=== PATIENT | male | born 1950 | race African-American/Black ===

== ENCOUNTER 2016-07-09 18:56 | Emergency (ER) | payer OTHER ==
--- NOTE | 2016-07-09 21:25 | RAD ---
Indication: Increasing LEFT shoulder pain without known injury. Comparison: None. Technique: Internal and external rotation AP and scapular Y views LEFT shoulder Report: Normal acromioclavicular and glenohumeral joint alignment. 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 Resulting inferior acromial bone spur. Mild acromioclavicular and glenohumeral joint osteophytosis. Negative for fracture. Negative for stigmata of calcific tendinopathy. Unremarkable soft tissue contours. IMPRESSION: 1. 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 Resulting inferior acromial bone spur. 2. Mild acromioclavicular and glenohumeral joint osteoarthritis.
--- NOTE | 2016-07-09 21:56 | UC ---
David Wang Erika, scribed for Serena Kang MD on 07/09/16 at 2101 . Shoulder Pain HPI - HPI Summary HPI Summary: Patient is a 65-year-old male presenting to [facility] with a CC of dull left shoulder pain for the past few months, worsening and becoming sharp the past few days. Patient denies trauma or previous injury to the shoulder. Patient rates it an 8/10. Pain is aggravated by lifting items and palpation. Patient denies any chest pain, chest pressure, chest tightness, and SOB, even with exertion. FHx CAD in father. Patient has never smoked. Pt works out regularly and has been doing push-ups. Pt is employed at [employer]. - History of Current Complaint Chief Complaint: UCUpperExtremity Stated Complaint: SHOULDER PAIN Time Seen by Provider: 07/09/16 20:41 Hx Obtained From: Patient Onset/Duration: Gradual Onset, Lasting Weeks - months, Worse Since - a few days Timing: Constant Severity Initially: Mild Severity Currently: Moderate Location Of Pain: Is Discrete @ - L shoulder Pain Intensity: 8 Pain Scale Used: 0-10 Numeric Character: Sharp, Dull Aggravating Factor(s): Movement Alleviating Factor(s): Rest Associated Signs And Symptoms: Positive: Negative - Risk Factors Non-Orthopedic Risk Factor: Negative DVT Risk Factors: Negative Septic Arthritis Risk Factor: Negative - Allergies/Home Medications Allergies/Adverse Reactions: Allergies Allergy/AdvReac Type Severity Reaction Status Date / Time Antihistamines, Allergy Intermediate Hives Verified 11/04/15 22:14 Chlorpheniramine-ty PMH/Surg Hx/FS Hx/Imm Hx Respiratory History Of: Reports: Asthma - asthmatic bronchitis Other History Of: Negative For: HIV, Hepatitis B, Hepatitis C, Anticoagulant Therapy - Surgical History Surgical History: None Surgery Procedure, Year, and Place: none - Family History Known Family History: Positive: Cardiac Disease - father with CABG Negative: Diabetes - Social History Occupation: Employed Full-time Alcohol Use: Occasionally Substance Use Type: None Smoking Status (MU): Never Smoked Tobacco Have You Smoked in the Last Year: No - Immunization History Most Recent Influenza Vaccination: not in several years Most Recent Tetanus Shot: up to date Review of Systems Constitutional: Negative Skin: Negative Eyes: Negative ENT: Negative Respiratory: Negative Cardiovascular: Negative Gastrointestinal: Negative Genitourinary: Negative Motor: Negative Neurovascular: Negative Musculoskeletal: Arthralgia, Myalgia - L shoulder Neurological: Negative Psychological: Negative All Other Systems Reviewed And Are Negative: Yes Physical Exam Triage Information Reviewed: Yes Appearance: Well-Appearing, Well-Nourished, Pain Distress Vital Signs: Initial Vital Signs Temp 98.1 F 07/09/16 20:30 Pulse 61 07/09/16 20:30 Resp 18 07/09/16 20:30 BP 110/70 07/09/16 20:30 Pulse Ox 100 07/09/16 20:30 Vital Signs Reviewed: Yes Eyes: Positive: Conjunctiva Clear ENT: Positive: Normal ENT inspection Neck: Positive: Supple, Nontender Respiratory: Positive: Lungs clear, Normal breath sounds, No respiratory distress Cardiovascular: Positive: RRR, No Murmur, Pulses Normal, Brisk Capillary Refill Musculoskeletal: Positive: Strength Intact, ROM Intact, Other: - Point tenderness at the left anterior biceps tendon. No bony tenderness. Neurological: Positive: Alert, Muscle Tone Normal Psychological Exam: Normal Skin Exam: Normal Diagnostics - Laboratory Diagnostic Studies Completed/Ordered: EKG at 21:22 - sinus bradycardia at 56 bpm. Normal axis at 30. Normal AV IV conduction time. No acute changes. No prior to compare. - Radiology L shoulder XR Radiology Interpretation Completed By: Radiologist - IMPRESSION: 1. 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 Resulting inferior acromial bone spur. 2. Mild acromioclavicular and glenohumeral joint osteoarthritis. Re-Evaluation - Re-Evaluation First Eval Re-Evaluation Time: 21:44 Change: Unchanged Comment: Discussed XR results and plan of care Shoulder Course/Dx - Differential Dx/Diagnosis Differential Diagnosis/HQI/PQRI: AC Separation, Arthritis, Rotator Cuff Injury, Sprain, Strain, Tendonitis Provider Diagnoses: acute left shoulder pain with osteoarthritis Discharge - Discharge Plan Condition: Stable Disposition: HOME Prescriptions: Ibuprofen TAB* [Motrin TAB* 800 MG] 800 mg PO Q6H #56 tab Patient Education Materials: Shoulder Pain (ED) Referrals: Jong Dong MD [Medical Doctor] - 2 Weeks (Call tomorrow for an appointment) The documentation as recorded by the David rodriguez Erika accurately reflects the service I personally performed and the decisions made by Jorge Luis haas Barbara J, MD.
[2016-07-09 22:07] VITALS: BP 111/79
== END 2016-07-09 22:02 | disposition home or self-care (01) ==
LOC: UCEAST 18:56
DX: M25.512 Pain in left shoulder (principal); M19.012 Primary osteoarthritis, left shoulder; Z82.49 Family history of ischemic heart disease and other diseases of the circulatory system
CPT/HCPCS: 93005; 99212; G0463

== ENCOUNTER 2016-09-12 08:24 | Emergency (ER) | payer OTHER ==
[2016-09-12 10:36] VITALS: BP 119/78
--- NOTE | 2016-09-12 10:55 | UC ---
Joaquin Wang Claudia, scribed for Judy Wynn MD on 09/12/16 at 1016 . General HPI - HPI Summary HPI Summary: 65 year old male presents to the [facility] with general illness for the past year, pt states that yesterday he couldn't concentrate and he has been very fatigued. He notes that he is very tired and doesn't know what is causing it. Pt denies hx cardiac disease, DM, HTN. 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 Pt states he has had some dizziness when he stands which has been going on for the last year but has had some intermittent episodes of it lately. Pt denies any NVD, heamturia, and being bit by any insects. He denies that eating alleviates his Sx. Pt has an appt with his new PCP Lana Bolden next Sunday. Pt notes that his has Bronchitis. No rash, no change in urinary habit. No melena / brbpr. No gi issues. No h/a , vis / aud changes. No new cough / sob. No fever / chills. Appetite good, sensation of hunger / full does not seem to correlate with fatigue sensation. He is very active (works out a lot ), but less so the last few weeks, 2/2 fatigue. - History of Current Complaint Chief Complaint: UCGeneralIllness Stated Complaint: FATIGUE Time Seen by Provider: 09/12/16 10:08 Hx Obtained From: Patient Onset/Duration: Gradual Onset, Lasting Weeks, Still Present Associated Signs & Symptoms: Positive: Other - fatigue - Allergy/Home Medications Allergies/Adverse Reactions: Allergies Allergy/AdvReac Type Severity Reaction Status Date / Time Antihistamines, Allergy Intermediate Hives Verified 09/12/16 08:35 Chlorpheniramine-ty Home Medications: Home Medications NK [No Home Medications Reported] 09/12/16 [History Confirmed 09/12/16] PMH/Surg Hx/FS Hx/Imm Hx Previously Healthy: Yes Endocrine History Of: Denies: Diabetes, Thyroid Disease, Hyperthyroidism, Hypothyroidism, Dyslipidemia Cardiovascular History Of: Denies: Cardiac Disorders, Hypertension, Pacemaker/ICD, Myocardial Infarction , Congestive Heart Failure, Atrial Fibrillation, Deep Vein Thrombosis, Bleeding Disorders Respiratory History Of: Reports: Asthma - asthmatic bronchitis Denies: COPD, Bronchitis, Pneumonia, Pulmonary Embolism GI/ History Of: Denies: Gastroesophageal Reflux, Ulcer, Gastrointestinal Bleed, Gall Bladder Disease, Kidney Stones, Diverticulitis, Renal Disease, Urosepsis Neurological History Of: Denies: TIA, CVA, Dementia, Seizures, Migraine Psychological History Of: Denies: Anxiety, Depression, Bipolar Disorder, Schizophrenia, Post Traumatic Stress Disorder Cancer History Of: Denies: Lung Cancer, Colorectal Cancer, Breast Cancer, Prostate Cancer, Cervical Cancer Other History Of: Negative For: HIV, Hepatitis B, Hepatitis C, Anticoagulant Therapy - Surgical History Surgical History: None Surgery Procedure, Year, and Place: none - Family History Known Family History: Positive: Cardiac Disease - father with CABG Negative: Diabetes - Social History Occupation: Employed Full-time Lives: With Family Alcohol Use: Occasionally Substance Use Type: None Smoking Status (MU): Never Smoked Tobacco Have You Smoked in the Last Year: No - Immunization History Most Recent Influenza Vaccination: not in several years Most Recent Tetanus Shot: up to date Review of Systems Constitutional: Fatigue Skin: Negative Eyes: Negative ENT: Negative Respiratory: Negative - NO SOB Cardiovascular: Negative Gastrointestinal: Negative - NO NVD Genitourinary: Negative - NO HEMATURIA Motor: Negative Neurovascular: Negative Musculoskeletal: Negative Neurological: Negative Psychological: Negative All Other Systems Reviewed And Are Negative: Yes Physical Exam Triage Information Reviewed: Yes Vital Signs: Initial Vital Signs Temp 97.1 F 09/12/16 08:31 Pulse 63 09/12/16 08:31 Resp 16 09/12/16 08:31 BP 110/70 09/12/16 08:31 Pulse Ox 98 09/12/16 08:31 - Additional Comments * Appearance: Well-Nourished * Eye Exam: Normal * ENT Exam: Normal * Respiratory Exam: Normal, no dyspnea, no tachypnea, normal respiratory rate, EXPIRATORY WHEEZES WITH FORCED EXPIRATION(discussed with pt) * Chest non-tender, Lungs clear, Normal breath sounds, No respiratory distress, No accessory muscle use * Cardiovascular Exam: Normal * Cardiovascular: Heart rate regular, good general skin color, good capillary refill * RRR, No Murmur, Pulses Normal - sitting up Brisk Capillary Refill * Abdominal Exam: Normal * Abdomen Description: Nontender, No Organomegaly, Soft * Bowel Sounds: Present * Musculoskeletal Exam: Normal * Musculoskeletal: Strength Intact * Neurological Exam: Normal: nonfocal, grossly intact CN 1 - 12 intact, incl + sens alcohol swab. No diplopia. DTR's 2+ equal P / BR / R Moves all ext's. Distal sens LT present x 4 ext's Denies B/B issues. Gait steady. * Psychological Exam: Normal: conversing easily and appropriately * Skin Exam: Normal: no visible or reported rash Diagnostics - EKG Cardiac Rate: NL - SR 52 beats/min WI 169 OTC 399 Cardiac Rhythm: Sinus: Normal Course/Dx - Course Course Of Treatment: No new problems while in [facility]. EKG reviewed - S.B. at 52 bpm. Old ekg with HR 56bpm. Able to ambulate without difficulty. Conversing easily and appropriately. Fatigue dx in an of itself is challenging, he is aware of the importance of close f/u with pcp as planned next week. Seek medical attention for worse or new problems in the meantime. Blood work ordered cbc, cmp, magn, crp, esr, lyme titer, tsh, Vit D 25OH. Questions answered to the best of my ability. - Differential Dx - Multi-Symptom Provider Diagnoses: Fatigue Discharge - Discharge Plan Condition: Stable Disposition: HOME Patient Education Materials: Fatigue (ED), Weakness (ED) Referrals: Lana Bolden MD [Medical Doctor] - Additional Instructions: Please follow up with your primary care provider as scheduled next week. Seek medical attention for worse or new problems in the meantime. Avoid driving or operating heavy machinery if you are too fatigued. Blood work ordered. cbc cmp esr crp lyme titer thyroid (tsh) The documentation as recorded by the Joaquin rodriguez Claudia accurately reflects the service I personally performed and the decisions made by me, Judy Wynn MD.
[2016-09-12 16:13] LABS: Hematocrit 42 % (42-52); Hemoglobin 14.2 g/dl (14.0-18.0); Mean Corpuscular HGB Conc 34 g/dl (31-36); Mean Corpuscular Hemoglobin 30 pg (27-31); Mean Corpuscular Volume 89 fL (80-94); Mean Platelet Volume 9 um3 (7.4-10.4); Red Blood Count 4.71 10^6/ul (4.0-5.4); Red Cell Distribution Width 13 % (10.5-15); White Blood Count 5.1 10^3/ul (3.5-10.8)
[2016-09-12 16:28] LABS: Albumin 4.1 g/dL (3.2-5.2); C Reactive Protein 3.63 mg/L (< 5.00); Calcium 9.2 mg/dL (8.6-10.3); EGFR Non-African American 66.9 (>60); Globulin 2.4 g/dL (2-4); Magnesium 1.9 mg/dL (1.9-2.7); TSH (Thyroid Stimulating Horm) 2.69 mcIU/mL (0.34-5.60); Total Bilirubin 0.5 mg/dL (0.2-1.0); Total Protein 6.5 g/dL (6.4-8.9)
[2016-09-12 17:08] LABS: Erythrocyte Sed Rate 10 mm/Hr (0-20)
== END 2016-09-12 11:13 | disposition home or self-care (01) ==
LOC: UCEAST 08:24
DX: R53.83 Other fatigue (principal)
CPT/HCPCS: 36415; 80053; 82306; 83735; 84443; 85025; 85652; 86140; 86618; 93005; 99212; G0463

== ENCOUNTER 2016-12-31 21:33 | Emergency (ER) | payer OTHER ==
[2016-12-31 21:39] VITALS: BP 116/74
[2016-12-31] MEDS ORDERED: Lidocaine 2% W/EPI 1:100,000* 20 ML MDV INJ ONE (22:03)
--- NOTE | 2016-12-31 22:27 | UC ---
Skin Complaint HPI - HPI Summary HPI Summary: 66 y/o male presents to the urgent care c/o a painful lump in his upper back he noticed about 4 hrs ago. Pt states is warm to touch, Pain is 7/10. He has not taking anything to alleviate symptoms. He denies Hx of MRSA or skin infections. Pt denies fever, SOB, chest pain, N/V/D - History of Current Complaint Chief Complaint: UCSkin Time Seen by Provider: 12/31/16 21:57 Stated Complaint: LUMP ON BACK Hx Obtained From: Patient Onset/Duration: Sudden Onset, Lasting Hours - 4 hrs ago Skin Exposure Onset/Duration: Hours Ago Timing: Constant Onset Severity: Moderate Current Severity: Moderate Pain Intensity: 7 Pain Scale Used: 0-10 Numeric Location: Discrete - RT upper back Character: Swelling, Pain, Redness, Raised Aggravating: Touch Alleviating: Nothing Associated Signs & Symptoms: Positive: Tenderness. Negative: Nausea, Vomiting, Numbness, Fever, Chills, Drainage, Red Streaks - Allergy/Home Medications Allergies/Adverse Reactions: Allergies Allergy/AdvReac Type Severity Reaction Status Date / Time Antihistamines, Allergy Intermediate Hives Verified 11/22/16 14:41 Chlorpheniramine-ty Home Medications: Home Medications Naproxen Sodium [Naproxen Sodium 220 mg] 220 mg PO 12/31/16 [History] Review of Systems Constitutional: Negative Skin: Rash - RT upper back with painful lump Eyes: Negative ENT: Negative Respiratory: Negative Cardiovascular: Negative Gastrointestinal: Negative Genitourinary: Negative Motor: Negative Neurovascular: Negative Musculoskeletal: Negative Neurological: Negative Psychological: Negative Is Patient Immunocompromised?: No All Other Systems Reviewed And Are Negative: Yes PMH/Surg Hx/FS Hx/Imm Hx Previously Healthy: Yes - Pt denies any PMHX Other History Of: Negative For: HIV, Hepatitis B, Hepatitis C, Anticoagulant Therapy - Surgical History Surgical History: None Surgery Procedure, Year, and Place: none - Family History Known Family History: Positive: Cardiac Disease - father with CABG, Hypertension , Diabetes - Social History Occupation: Employed Full-time Lives: With Family Alcohol Use: Occasionally Substance Use Type: None Smoking Status (MU): Never Smoked Tobacco Have You Smoked in the Last Year: No - Immunization History Most Recent Influenza Vaccination: not in several years Most Recent Tetanus Shot: up to date Physical Exam Triage Information Reviewed: Yes Appearance: Well-Appearing, No Pain Distress, Well-Nourished Vital Signs: Initial Vital Signs Temp 98.2 F 12/31/16 21:35 Pulse 79 12/31/16 21:35 Resp 18 12/31/16 21:35 BP 116/74 12/31/16 21:35 Pulse Ox 100 12/31/16 21:35 Vital Signs Reviewed: Yes Eye Exam: Normal Eyes: Positive: Conjunctiva Clear - PERRLA, EOMI ENT Exam: Normal ENT: Positive: Normal ENT inspection, Hearing grossly normal, Pharynx normal, TMs normal Neck exam: Normal Neck: Positive: Supple, Nontender, No Lymphadenopathy Respiratory Exam: Normal Respiratory: Positive: Chest non-tender, Lungs clear, Normal breath sounds, No respiratory distress Cardiovascular Exam: Normal Cardiovascular: Positive: RRR, No Murmur, Pulses Normal Abdominal Exam: Normal Abdomen Description: Positive: Nontender, No Organomegaly, Soft. Negative: CVA Tenderness (R), CVA Tenderness (L) Bowel Sounds: Positive: Present Musculoskeletal Exam: Normal Musculoskeletal: Positive: Strength Intact, ROM Intact, No Edema Neurological Exam: Normal Psychological Exam: Normal Skin Exam: Normal Skin: Positive: Other - RT upper back with an indurated, raised erythematous cyst, warm and tender to palpation, about 2cmx 2cm in size, Blackhead pimple in the center. Course/Dx - Course Course Of Treatment: 66 y/o male presents to the urgent care c/o a painful lump in his upper back he noticed about 4 hrs ago. Pt states is warm to touch, Pain is 7/10. He has not taking anything to alleviate symptoms. He denies Hx of MRSA or skin infections. Pt denies fever, SOB, chest pain, N/V/D. HX Obtained. Dx Abscess of the RT upper back. I&D of abscess procedure:The procedure was explained and consent obtained. [place] protocol performed. The wound was anesthetized with 4mL of Lido/epi 2% with good anesthesia. Sterile drape and prep were done. The fluctuant center was incised with #11 blade scalpel. A moderate amount of caseous material was expressed . wound cultures obtained and sent to lab lab to r/o MRSA. The wound was probed for loculated areas and irrigated with normal saline. The wound was packed loosely with wick or left open. Bacitracin topical ointment applied and wound covered with sterile dressing. The patient tolerated the procedure well. Pt Rx Keflex PO, first dose given at the clinic. and Advise dto take the Naproxen PO he has at home for pain. Advised to return to the urgent care for wound check up in 2 days. Pt advised fever develops and pain increase despite ABX to go immediately to the ER for further management. Pt understood and agreed with D/C instructions. Left the clinic ambulating A&OX3. Time out performed and all involved parties agreed to the PT, procedure and laterality. The patient was prepped and draped in usual sterile fashion. Local anesthesia was obtained with 1 % Lidocaine w/o epinephrine. - Differential Diagnoses - Skin Complaint Differential Diagnoses: Abscess, Cellulitis, Contact Dermatitis, Impetigo, Lymphadenitis, Tinea, Urticaria, Other - lipoma - Diagnoses Provider Diagnoses: 1- RT upper back with abscess Discharge - Discharge Plan Condition: Stable Disposition: HOME Prescriptions: Bacitracin OINTMENT* 1 applic TOPICAL TID #1 tube Cephalexin CAP* [Keflex CAP*] 500 mg PO QID #27 cap Patient Education Materials: Abscess (ED) Referrals: Lana Bolden MD [Primary Care Provider] - 2 Days Additional Instructions: 1-Please take full course of antibiotic to avoid resistance. Keep wound clean and dry with a sterile dressing. Apply bacitracin topical as directed 2- F/u wound check up in 2 days with your PCP or at the urgent care for removal of packing 3-. Take Naproxen PO q6-8hrs prn you have at home for pain or swelling after meals. 4-If you develop fever or redness despite antibiotic please go to the ER immediately or return to the Urgent care. 5- Wound culture sent to lab, if any abnormal result you will receive a call from us
[2016-12-31] MEDS ORDERED: Cephalexin CAP* 500 MG PO ONE (22:35)
--- NOTE | 2017-01-03 17:21 | ED ---
Progress - Progress Note Progress Note: CALL PATIENT. CX GREW FINEGOLDIA (ANAEROBIC). CONTINUE ABX. IF WORSE GOT TO ER./ PCP. Course/Dx - Course Course Of Treatment: 66 y/o male presents to the urgent care c/o a painful lump in his upper back he noticed about 4 hrs ago. Pt states is warm to touch, Pain is 7/10. He has not taking anything to alleviate symptoms. He denies Hx of MRSA or skin infections. Pt denies fever, SOB, chest pain, N/V/D. HX Obtained. Dx Abscess of the RT upper back. I&D of abscess procedure:The procedure was explained and consent obtained. [place] protocol performed. The wound was anesthetized with 4mL of Lido/epi 2% with good anesthesia. Sterile drape and prep were done. The fluctuant center was incised with #11 blade scalpel. A moderate amount of caseous material was expressed . wound cultures obtained and sent to lab lab to r/o MRSA. The wound was probed for loculated areas and irrigated with normal saline. The wound was packed loosely with wick or left open. Bacitracin topical ointment applied and wound covered with sterile dressing. The patient tolerated the procedure well. Pt Rx Keflex PO, first dose given at the clinic. and Advise dto take the Naproxen PO he has at home for pain. Advised to return to the urgent care for wound check up in 2 days. Pt advised fever develops and pain increase despite ABX to go immediately to the ER for further management. Pt understood and agreed with D/C instructions. Left the clinic ambulating A&OX3. Time out performed and all involved parties agreed to the PT, procedure and laterality. The patient was prepped and draped in usual sterile fashion. Local anesthesia was obtained with 1 % Lidocaine w/o epinephrine. - Diagnoses Provider Diagnoses: Wound abscess
== END 2016-12-31 22:50 | disposition home or self-care (01) ==
LOC: UCEAST 21:33
DX: L02.212 Cutaneous abscess of back [any part, except buttock and flank] (principal)
CPT/HCPCS: 10060; 87070; 87076; 87205; 87640; 87641; 99212; A9270-GY; G0463

== ENCOUNTER 2017-01-02 10:55 | Emergency (ER) | payer OTHER ==
[2017-01-02 11:10] VITALS: BP 104/66
--- NOTE | 2017-01-02 12:02 | UC ---
Skin Complaint HPI - History of Current Complaint Chief Complaint: UCSkin Time Seen by Provider: 01/02/17 12:01 Stated Complaint: SKIN FOLLOW-UP Hx Obtained From: Patient - Allergy/Home Medications Allergies/Adverse Reactions: Allergies Allergy/AdvReac Type Severity Reaction Status Date / Time Antihistamines, Allergy Intermediate Hives Verified 01/02/17 11:10 Chlorpheniramine-ty PMH/Surg Hx/FS Hx/Imm Hx Other History Of: Negative For: HIV, Hepatitis B, Hepatitis C, Anticoagulant Therapy - Surgical History Surgical History: None Surgery Procedure, Year, and Place: none - Family History Known Family History: Positive: Cardiac Disease - father with CABG, Hypertension , Diabetes - Social History Alcohol Use: Occasionally Substance Use Type: None Smoking Status (MU): Never Smoked Tobacco Have You Smoked in the Last Year: No - Immunization History Most Recent Influenza Vaccination: not in several years Most Recent Tetanus Shot: up to date Physical Exam Vital Signs: Initial Vital Signs Temp 97.5 F 01/02/17 11:06 Pulse 57 01/02/17 11:06 Resp 18 01/02/17 11:06 BP 104/66 01/02/17 11:06 Pulse Ox 100 01/02/17 11:06
--- NOTE | 2017-01-02 12:10 | UC ---
Progress - Progress Note Progress Note: 12:00 I stepped in to see Mr. Wilson, he politely requested to see Ms. Mario Harmon, who he saw on 12/31/16. I offered that I would be happy to help if requested.
--- NOTE | 2017-01-02 12:21 | UC ---
Skin Complaint HPI - HPI Summary HPI Summary: 66 y/o male presents to the urgent care for f/u wound check up on his I&D done on his RT upper back on 12/31/2016. Pt states he is taking his antibiotic as directed. Pt reports only itchiness over the wound. Pt denies pain, fever, SOB, chest pain, N/V/D - History of Current Complaint Chief Complaint: UCSkin Time Seen by Provider: 01/02/17 12:01 Stated Complaint: SKIN FOLLOW-UP Hx Obtained From: Patient Onset/Duration: Gradual Onset, Lasting Days, Resolved - resolvong after I&D Onset Severity: Severe Current Severity: Mild Pain Intensity: 0 Pain Scale Used: 0-10 Numeric Location: Discrete - back abscess Character: Pruritus Aggravating: Touch Alleviating: Other - antibiotics Associated Signs & Symptoms: Positive: Negative - Allergy/Home Medications Allergies/Adverse Reactions: Allergies Allergy/AdvReac Type Severity Reaction Status Date / Time Antihistamines, Allergy Intermediate Hives Verified 01/02/17 11:10 Chlorpheniramine-ty Review of Systems Constitutional: Negative Skin: Other - RT upper back abscess healing well Eyes: Negative ENT: Negative Respiratory: Negative Cardiovascular: Negative Gastrointestinal: Negative Genitourinary: Negative Motor: Negative Neurovascular: Negative Musculoskeletal: Negative Neurological: Negative Psychological: Negative Is Patient Immunocompromised?: No All Other Systems Reviewed And Are Negative: Yes PMH/Surg Hx/FS Hx/Imm Hx Previously Healthy: Yes Other History Of: Negative For: HIV, Hepatitis B, Hepatitis C, Anticoagulant Therapy - Surgical History Surgical History: None Surgery Procedure, Year, and Place: none - Family History Known Family History: Positive: Cardiac Disease - father with CABG, Hypertension , Diabetes - Social History Occupation: Employed Full-time Lives: With Family Alcohol Use: Occasionally Substance Use Type: None Smoking Status (MU): Never Smoked Tobacco Have You Smoked in the Last Year: No - Immunization History Most Recent Influenza Vaccination: not in several years Most Recent Tetanus Shot: up to date Physical Exam Triage Information Reviewed: Yes Appearance: Well-Appearing, No Pain Distress, Well-Nourished Vital Signs: Initial Vital Signs Temp 97.5 F 01/02/17 11:06 Pulse 57 01/02/17 11:06 Resp 18 01/02/17 11:06 BP 104/66 01/02/17 11:06 Pulse Ox 100 01/02/17 11:06 Vital Signs Reviewed: Yes Eye Exam: Normal Eyes: Positive: Conjunctiva Clear - PERRLA, EOMI ENT Exam: Normal ENT: Positive: Normal ENT inspection, Hearing grossly normal, Pharynx normal, TMs normal Neck exam: Normal Neck: Positive: Supple, Nontender, No Lymphadenopathy Respiratory Exam: Normal Respiratory: Positive: Chest non-tender, Lungs clear, Normal breath sounds Cardiovascular Exam: Normal Cardiovascular: Positive: RRR, No Murmur, Pulses Normal Abdominal Exam: Normal Abdomen Description: Positive: Nontender, No Organomegaly, Soft. Negative: CVA Tenderness (R), CVA Tenderness (L) Bowel Sounds: Positive: Present Musculoskeletal Exam: Normal Neurological Exam: Normal Psychological Exam: Normal Skin: Positive: Other - RT upper back with abscess s/p I&D with packing in placed. mild sourrounding erythema, non tender on palpation, discrete serosanguinous discharge. Course/Dx - Course Course Of Treatment: 66 y/o male presents to the urgent care for f/u wound check up on his I&D done on his RT upper back on 12/31/2016. Pt states he is taking his antibiotic as directed. Pt reports only itchiness over the wound. Pt denies pain, fever, SOB, chest pain, N/V/D. hx obtained. PE abnormality: RT upper back with abscess s/p I&D with packing in placed. mild sourrounding erythema, non tender on palpation, discrete serosanguinous discharge. Packing removed and mild serosanguinous drainage removed. wound healing well. Bacitracin topical ABX applied and sterile dressing applied. Wound culture positive for S. Aureus. Pt Advised to continue taking the Keflex PO and keep wound dry and clean as directed.If he develops fever or redness despite antibiotic please go to the ER immediately or return to the Urgent care. Pt understood and agreed with D/C instructions and left the clinic ambulating , A& OX3 - Differential Diagnoses - Skin Complaint Differential Diagnoses: Abscess, Cellulitis, Contact Dermatitis, Lymphadenitis, Urticaria - Diagnoses Provider Diagnoses: 1- Right upper back abscess wound check-up Discharge - Discharge Plan Condition: Stable Disposition: HOME Patient Education Materials: Acute Wound Care (ED) Referrals: Lana Bolden MD [Primary Care Provider] - If Needed Additional Instructions: 1- Please continue taking Keflex PO and applying Bacitracin ointment as directed. 2-If you develop fever or redness despite antibiotic please go to the ER immediately or return to the Urgent care. 3- Wound culture was postive for S. Aureus bacteria.
== END 2017-01-02 12:50 | disposition home or self-care (01) ==
LOC: UCEAST 10:55
DX: Z48.817 Encounter for surgical aftercare following surgery on the skin and subcutaneous tissue (principal); L02.212 Cutaneous abscess of back [any part, except buttock and flank]
CPT/HCPCS: 99211; G0463

== ENCOUNTER 2017-05-15 13:32 | Emergency (ER) | payer OTHER ==
[2017-05-15 13:47] VITALS: BP 109/69
[2017-05-15] MEDS ORDERED: Albuterol/Ipratropium NEB.SOL* Albuterol 2.5 MG/Ipratropium 0.5 MG 3 ML INH ONE (14:05)
--- NOTE | 2017-05-15 14:30 | UC ---
Respiratory Complaint HPI - HPI Summary HPI Summary: Pleasant 66 yo gentleman c/o approx 5 days progressive worse cough, congestion. Started as sinus congestion and sore throat. Improved, but once again worsened. No fever / chills. ++ cough, worse at night, needs to sit up to sleep. No rash. No sob perse except with cough. No GI issues. Does have a hx bronchitis, not recent. - History of Current Complaint Chief Complaint: UCRespiratory Stated Complaint: CONGESTION Time Seen by Provider: 05/15/17 13:51 Hx Obtained From: Patient, Family/[employer] - Allergies/Home Medications Allergies/Adverse Reactions: Allergies Allergy/AdvReac Type Severity Reaction Status Date / Time Antihistamines, Allergy Intermediate Hives Verified 05/15/17 13:47 Chlorpheniramine-ty PMH/Surg Hx/FS Hx/Imm Hx Previously Healthy: Yes Other History Of: Negative For: HIV, Hepatitis B, Hepatitis C, Anticoagulant Therapy - Surgical History Surgical History: None Surgery Procedure, Year, and Place: none - Family History Known Family History: Positive: Cardiac Disease - father with CABG, Hypertension , Diabetes - Social History Alcohol Use: Occasionally Substance Use Type: None Smoking Status (MU): Never Smoked Tobacco Have You Smoked in the Last Year: No - Immunization History Most Recent Influenza Vaccination: not in several years Most Recent Tetanus Shot: up to date Review of Systems Constitutional: Fatigue Skin: Negative Eyes: Negative ENT: Sore Throat, Ear Ache, Nasal Discharge, Sinus Congestion Respiratory: Cough Cardiovascular: Negative Gastrointestinal: Negative Genitourinary: Negative Motor: Negative Neurovascular: Negative Musculoskeletal: Negative Neurological: Negative Psychological: Negative Is Patient Immunocompromised?: No All Other Systems Reviewed And Are Negative: Yes Physical Exam Triage Information Reviewed: Yes Appearance: Well-Appearing, Well-Nourished - sitting up, conversing easily and appropriately. Able to converse in full sentances. Non-diaphoretic. Vital Signs: Initial Vital Signs Temp 97.9 F 05/15/17 13:43 Pulse 65 05/15/17 13:43 Resp 18 05/15/17 13:43 BP 109/69 05/15/17 13:43 Pulse Ox 98 05/15/17 13:43 Vital Signs Reviewed: Yes Eye Exam: Normal ENT: Positive: Pharyngeal erythema - uvula midline. Uvula edematous, but not obstructing. Post pharynx general erythematous. No appreciable sores., Nasal congestion Neck exam: Normal Neck: Positive: Supple, Nontender, No Lymphadenopathy Respiratory: Positive: No respiratory distress, No accessory muscle use, Other: - BS equal. + Bilat insp and exp wheezes (both upper and lower chest). No rtx. No stridor. Cardiovascular Exam: Normal Cardiovascular: Positive: RRR, No Murmur, Pulses Normal, Brisk Capillary Refill Abdominal Exam: Normal Abdomen Description: Positive: Nontender Musculoskeletal Exam: Normal Musculoskeletal: Positive: Strength Intact Neurological Exam: Normal - grossly intact, nonfocal. Psychological Exam: Normal - conversing easily and appropriately. Skin Exam: Normal UC Diagnostic Evaluation - Laboratory O2 Sat by Pulse Oximetry: 98 Respiratory Course/Dx - Course Course Of Treatment: CXR reviewed. nad. Influenza A/B swab neg. Reviewed recommendation for f/u with pcp for recheck. Questions as posed answered to the best of my ability. Reviewed coa and tx plan, also included usual narc discussion. rx as below - Differential Dx/Diagnosis Provider Diagnoses: acute bronchitis. bronchospasm Discharge - Discharge Plan Condition: Stable Disposition: HOME Prescriptions: Albuterol HFA INHALER* [Ventolin HFA Inhaler*] 1 - 2 puff INH Q6H PRN #1 mdi PRN Reason: Wheezing DOXYcycline CAP(*) [DOXYcycline 100MG CAP(*)] 100 mg PO BID #20 cap Guaifenesin-Codeine [Codeine/Guaifenesin 100-10 mg/5Ml] 5 ml PO Q6H #200 ml MDD 40ml Patient Education Materials: Acute Bronchitis (ED), Bronchospasm (ED) Referrals: Lana Bolden MD [Primary Care Provider] - Additional Instructions: Please follow up with your primary care physician - recommend in the next 1-2 weeks for recheck. Please seek medical attention for worse or new problems in the meantime. Consider probiotic dietary supplement while taking antibiotic. Drink plenty of fluids.
--- NOTE | 2017-05-15 14:34 | RAD ---
HISTORY: Cough, shortness of breath COMPARISONS: November 10, 2015 VIEWS: 4: Frontal dual-energy and lateral views of the chest. FINDINGS: CARDIOMEDIASTINAL SILHOUETTE: The cardiomediastinal silhouette is normal. RENETTA: The renetta are normal. PLEURA: The costophrenic angles are sharp. No pleural abnormalities are noted. LUNG PARENCHYMA: The lungs are clear. ABDOMEN: The upper abdomen is clear. There is no subphrenic gas. BONES AND SOFT TISSUES: No bone or soft tissue abnormalities are noted. OTHER: None. IMPRESSION: NO ACTIVE CARDIOPULMONARY DISEASE.
== END 2017-05-15 15:06 | disposition home or self-care (01) ==
LOC: UCEAST 13:32
DX: J20.9 Acute bronchitis, unspecified (principal)
CPT/HCPCS: 71046; 87502; 99212; A9270-GY; G0463

== ENCOUNTER 2017-08-07 15:13 | Emergency (ER) | payer OTHER ==
[2017-08-07 15:46] VITALS: BP 114/75
--- NOTE | 2017-08-07 17:05 | UC ---
FLU HPI - HPI Summary HPI Summary: 66 y/o male with c/o chest congestions, sinus congestion, non-prod cough, runny nose, tightness in chest with deep breaths, mild body aches. Denies fever, chills, SOB, ear pain. mild [place]. no NVCD. no pmh, no meds no recent abx - History of Current Complaint Hx Obtained From: Patient Onset/Duration: Sudden Onset, Lasting Days Severity Currently: Mild Severity Initially: Moderate Pain Intensity: 3 Pain Scale Used: 0-10 Numeric <Judy Molina - Last Filed: 08/07/17 17:01> <Devika Rizo - Last Filed: 08/07/17 18:59> - History of Current Complaint Chief Complaint: UCRespiratory Stated Complaint: COUGH,CONGESTION,COUGH Time Seen by Provider: 08/07/17 16:42 - Allergy/Home Medications Allergies/Adverse Reactions: Allergies Allergy/AdvReac Type Severity Reaction Status Date / Time Antihistamines - Alkylamine Allergy Hives Verified 08/07/17 15:47 PMH/Surg Hx/FS Hx/Imm Hx Previously Healthy: Yes Other History Of: Negative For: HIV, Hepatitis B, Hepatitis C, Anticoagulant Therapy - Surgical History Surgical History: None Surgery Procedure, Year, and Place: none - Family History Known Family History: Positive: Cardiac Disease - father with CABG, Hypertension , Diabetes - Social History Alcohol Use: Occasionally Substance Use Type: None Smoking Status (MU): Never Smoked Tobacco Have You Smoked in the Last Year: No - Immunization History Most Recent Influenza Vaccination: not in several years Most Recent Tetanus Shot: up to date <Judy Molina - Last Filed: 08/07/17 17:01> Review of Systems Constitutional: Fatigue ENT: Ear Ache, Nasal Discharge, Sinus Congestion, Sinus Pain/Tenderness Respiratory: Cough Neurological: Headache - mild Is Patient Immunocompromised?: No All Other Systems Reviewed And Are Negative: Yes <Judy Molina - Last Filed: 08/07/17 17:01> Physical Exam Triage Information Reviewed: Yes Appearance: No Pain Distress, Well-Nourished, Ill-Appearing - mild Vital Signs: Initial Vital Signs Temp 98.2 F 08/07/17 15:42 Pulse 84 08/07/17 15:42 Resp 18 08/07/17 15:42 BP 114/75 08/07/17 15:42 Pulse Ox 100 08/07/17 15:42 Eyes: Positive: Conjunctiva Clear ENT: Positive: Pharynx normal, TMs normal - mild fluid behind TM b/l, Sinus tenderness, Uvula midline. Negative: Pharyngeal erythema, Nasal drainage, Tonsillar swelling, Tonsillar exudate Neck: Positive: Supple, Nontender, Enlarged Nodes @ - minimal submand Respiratory: Positive: Chest non-tender, Lungs clear, Normal breath sounds, No respiratory distress, No accessory muscle use, Wheezing - b/l LLs. Negative: Respiratory distress, Decreased breath sounds Cardiovascular: Positive: RRR, No Murmur Abdomen Description: Negative: CVA Tenderness (R), CVA Tenderness (L) <Judy Molina - Last Filed: 08/07/17 17:01> Vital Signs: Initial Vital Signs Temp 98.2 F 08/07/17 15:42 Pulse 84 08/07/17 15:42 Resp 18 08/07/17 15:42 BP 114/75 08/07/17 15:42 Pulse Ox 100 08/07/17 15:42 <Devika Rizo - Last Filed: 08/07/17 18:59> Flu Course/Dx - Course Course Of Treatment: sinusitis with ? CAP, abx, follow up with pcp, conservative treatment - Differential Dx/Diagnosis Provider Diagnoses: Sinusitis <Judy Molina - Last Filed: 08/07/17 17:01> Discharge - Sign-Out/Discharge Documenting (check all that apply): Discharge - Billing Disposition and Condition Condition: GOOD Disposition: HOME <Judy Molina - Last Filed: 08/07/17 17:01> - Billing Disposition and Condition Condition: GOOD Disposition: HOME <Devika Rizo - Last Filed: 08/07/17 18:59> - Discharge Plan Condition: Good Disposition: HOME Prescriptions: Azithromycin TAB* [Zithromax TAB (Z-ROMY) 250 mg #6 tabs] 2 tab PO .TODAY, THEN 1 DAILY #1 romy Patient Education Materials: Sinusitis (ED) Forms: *Work Release Referrals: Lana Bolden MD [Primary Care Provider] - Additional Instructions: - Antibiotics as prescribed - ALbuterol inhaler as needd - increase fluid intake - Follow up with primary if no improvement within 2-3 days - return to ER with shorness of breath, chest pain Attestation Statement User Type: Provider - I was available for consult. This patient was seen by the LAUREN. The patient was not presented to, seen by, or examined by me. -Tanisha <Devika Rizo - Last Filed: 08/07/17 18:59>
== END 2017-08-07 17:13 | disposition home or self-care (01) ==
LOC: UCEAST 15:13
DX: J32.9 Chronic sinusitis, unspecified (principal); R05 Cough; R53.83 Other fatigue; Z88.8 Allergy status to other drugs, medicaments and biological substances
CPT/HCPCS: 99212; G0463

== ENCOUNTER 2018-02-05 18:19 | Emergency (ER) | payer OTHER ==
[2018-02-05 19:14] VITALS: BP 111/71
--- NOTE | 2018-02-05 19:52 | UC ---
UC General HPI - HPI Summary HPI Summary: Pleasant 67 yo gentleman c/o sinus congestion "sinus infection" last week, it is better now, but concerned b/c thinks it is going into his chest. + cough some productive, tight, progressively worse. Hx of similar in the past, that has gotten significantly worse. No rash. Not sob. Has used inhalers in the past with previous bronchitis, but reports palpitations and insomnia while using. Wonders if / why wheezing chest tightness worse. No recent fever. No rash. No GI issues. - History of Current Complaint Chief Complaint: UCRespiratory Stated Complaint: SINUS CONGESTION Time Seen by Provider: 02/05/18 19:30 Hx Obtained From: Patient Pain Intensity: 0 - Allergy/Home Medications Allergies/Adverse Reactions: Allergies Allergy/AdvReac Type Severity Reaction Status Date / Time Antihistamines - Alkylamine Allergy Hives Verified 02/05/18 19:15 PMH/Surg Hx/FS Hx/Imm Hx Previously Healthy: Yes Other History Of: Negative For: HIV, Hepatitis B, Hepatitis C, Anticoagulant Therapy - Surgical History Surgical History: None Surgery Procedure, Year, and Place: none - Family History Known Family History: Positive: Cardiac Disease - father with CABG, Hypertension , Diabetes - Social History Alcohol Use: Occasionally Substance Use Type: None Smoking Status (MU): Never Smoked Tobacco Have You Smoked in the Last Year: No - Immunization History Most Recent Influenza Vaccination: not in several years Most Recent Tetanus Shot: up to date Review of Systems Constitutional: Fatigue Skin: Negative Eyes: Negative ENT: Sinus Congestion - see hpi Respiratory: Shortness Of Breath, Cough Cardiovascular: Negative Gastrointestinal: Negative Genitourinary: Negative Motor: Negative Neurovascular: Negative Musculoskeletal: Negative Neurological: Negative Psychological: Negative Is Patient Immunocompromised?: No All Other Systems Reviewed And Are Negative: Yes Physical Exam Triage Information Reviewed: Yes Appearance: Well-Nourished Vital Signs: Initial Vital Signs Temp 97.5 F 02/05/18 19:12 Pulse 58 02/05/18 19:12 Resp 16 02/05/18 19:12 BP 111/71 02/05/18 19:12 Pulse Ox 100 02/05/18 19:12 Vital Signs Reviewed: Yes Eye Exam: Normal ENT: Positive: Pharyngeal erythema - mild post pharyng redness c/w cough, post nasal drip, Other - TM left good light reflex. TM R harrison, dull. Neck exam: Normal Neck: Positive: Supple, Nontender, No Lymphadenopathy Respiratory Exam: Other - occas ilya wheeze. Faint crackle left base. No rtx. Respiratory: Positive: No respiratory distress, No accessory muscle use Cardiovascular Exam: Normal Cardiovascular: Positive: RRR, No Murmur, Pulses Normal, Brisk Capillary Refill Abdominal Exam: Normal Abdomen Description: Positive: Nontender Musculoskeletal Exam: Normal - gait steady, moves x 4 ext's Neurological Exam: Normal - grossly nonfocal Psychological Exam: Normal - conversing easily and appropriately. NAD. Skin Exam: Normal - no visible or reported rash. Course/Dx - Course Course Of Treatment: Reviewed coa / tx plan. Questions as posed answered to the best of my ability. Encourage f/u pcp. Recommend xopenex d/t reasons as noted in hpi. If not covered by insurance, he reports that he will use albuterol, but would prefer mitigation of above sx. - Differential Dx - Multi-Symptom Provider Diagnoses: Bronchitis. bronchospasm Discharge - Sign-Out/Discharge Documenting (check all that apply): Patient Departure All imaging exams completed and their final reports reviewed: No - Discharge Plan Condition: Stable Disposition: HOME Prescriptions: Azithromyxin ROMY (NF) [Z-Romy (Zithromax) 250 mg tabs #6] 2 tab PO .TODAY, THEN 1 DAILY #6 tab Levalbuterol HFA INHALER* [Xopenex Hfa Inhaler*] 2 puff INH Q6H PRN #1 mdi PRN Reason: Shortness Of Breath Patient Education Materials: Acute Bronchitis (ED), Bronchospasm (ED) Referrals: Lana Bolden MD [Primary Care Provider] - Additional Instructions: Please follow up with your primary care physician in the next 2 weeks for respiratory recheck. Consider pulmonary function tests. Drink plenty of fluids. Seek medical attention for worse or new problems. - Billing Disposition and Condition Condition: STABLE Disposition: Home
--- NOTE | 2018-02-06 12:33 | UC ---
- Progress Note Progress Note: No studies Discharge - Sign-Out/Discharge Documenting (check all that apply): Post-Discharge Follow Up All imaging exams completed and their final reports reviewed: No Studies - Discharge Plan Condition: Stable Disposition: HOME Prescriptions: Albuterol HFA INHALER* [Ventolin HFA Inhaler*] 1 - 2 puff INH Q6H PRN #1 mdi PRN Reason: Wheezing Azithromyxin ROMY (NF) [Z-Romy (Zithromax) 250 mg tabs #6] 2 tab PO .TODAY, THEN 1 DAILY #6 tab Levalbuterol HFA INHALER* [Xopenex Hfa Inhaler*] 2 puff INH Q6H PRN #1 mdi PRN Reason: Shortness Of Breath Patient Education Materials: Acute Bronchitis (ED), Bronchospasm (ED) Referrals: Lana Bolden MD [Primary Care Provider] - Additional Instructions: Please follow up with your primary care physician in the next 2 weeks for respiratory recheck. Consider pulmonary function tests. Drink plenty of fluids. Seek medical attention for worse or new problems. - Billing Disposition and Condition Condition: STABLE Disposition: Home
== END 2018-02-05 20:10 | disposition home or self-care (01) ==
LOC: UCEAST 18:19
DX: J40 Bronchitis, not specified as acute or chronic (principal); J21.9 Acute bronchiolitis, unspecified; Z88.8 Allergy status to other drugs, medicaments and biological substances
CPT/HCPCS: 99212; G0463